=== PATIENT | female | born 1995 | race Two or more races ===

== ENCOUNTER 2021-04-30 13:15 | Emergency (ER) | payer OTHER ==
[~2021-04-30] VITALS: Ht 162.6 cm; Wt 63.5 kg
[2021-04-30 13:24] VITALS: BP 113/67
[2021-04-30] MEDS ORDERED: IBUP-1955 PO (15:38)
--- NOTE | 2021-04-30 15:43 | NUR ---
Patient discharged to home in stable condition. Written and verbal after care instructions given. Patient verbalizes understanding of instruction.
== END 2021-04-30 15:44 | disposition home or self-care (01) ==
LOC: ER 13:19
DX: S16.1XXA Strain of muscle, fascia and tendon at neck level, initial encounter (principal); S09.8XXA Other specified injuries of head, initial encounter; Z98.890 Other specified postprocedural states; V49.49XA Driver injured in collision with other motor vehicles in traffic accident, initial encounter; Y93.89 Activity, other specified; Y92.413 State road as the place of occurrence of the external cause; Y99.8 Other external cause status
CPT/HCPCS: 72050-TC